=== PATIENT | female | born 1985 | race Two or more races ===

== ENCOUNTER 2022-01-07 20:07 | Emergency (ER) | payer BC ==
[~2022-01-07] VITALS: Ht 152.4 cm; Wt 81.6 kg
[2022-01-07] MEDS ORDERED: EMGALITY P120 MG/1 M (20:20)
[2022-01-07] MEDS ORDERED: PEG3350238 GM (20:21)
[2022-01-07] MEDS ORDERED: ZANAFLEX2 MG (20:21)
[2022-01-07] MEDS ORDERED: CARBIDOPA-LEVO1 EA10 (20:21)
[2022-01-07] MEDS ORDERED: TOPIRAMATE50 MG (20:21)
[2022-01-07] MEDS ORDERED: CYCLOBENZAPRINE10 MG (20:21)
[2022-01-07] MEDS ORDERED: STIMULANT LAXA1 EACH (20:21)
[2022-01-07] MEDS ORDERED: HYDROMORPHONE HC2 MG (20:22)
[2022-01-07] MEDS ORDERED: PROPRANOLOL HCL80 MG (20:22)
[2022-01-07] MEDS ORDERED: GABAPENTIN300 M2 (20:22)
[2022-01-07] MEDS ORDERED: VITAMIN D31250 MCG (20:22)
[2022-01-07] MEDS ORDERED: ANUSOL-HC25 MG (20:22)
[2022-01-07] MEDS ORDERED: AMLODIPINE BESYL5 MG (20:22)
[2022-01-08] MEDS ORDERED: DICY20TA PO (06:05)
[2022-01-08] MEDS ORDERED: DOLOGESIC-DF 51 EACH PO (06:12)
[2022-01-08] MEDS ORDERED: ORASEP SPRAY30 ML MM (06:25)
[2022-01-08] MEDS ORDERED: ZOFRAN8 MG PO (06:26)
== END 2022-01-08 06:31 ==
LOC: ER 20:07
DX: R10.9 Unspecified abdominal pain (principal); N20.0 Calculus of kidney

== ENCOUNTER 2023-04-07 09:05 | Outpatient (CLI) | payer BC ==
[~2023-04-07 09:05] MED LIST: AMLODIPINE BESYL5 MG; ANUSOL-HC25 MG; CARBIDOPA-LEVO1 EA10; CYCLOBENZAPRINE10 MG; DICY20TA PO; DOLOGESIC-DF 51 EACH PO; EMGALITY P120 MG/1 M; GABAPENTIN300 M2; HYDROMORPHONE HC2 MG; ORASEP SPRAY30 ML MM; PEG3350238 GM; PROPRANOLOL HCL80 MG; STIMULANT LAXA1 EACH; TOPIRAMATE50 MG; VITAMIN D31250 MCG; ZANAFLEX2 MG; ZOFRAN8 MG PO
== END 2023-04-07 09:09 | disposition home or self-care (01) ==
LOC: LAB 09:05
DX: E78.49 Other hyperlipidemia (principal); E07.89 Other specified disorders of thyroid; Z12.11 Encounter for screening for malignant neoplasm of colon; N39.0 Urinary tract infection, site not specified; I11.9 Hypertensive heart disease without heart failure; Z11.4 Encounter for screening for human immunodeficiency virus [HIV]; Z11.59 Encounter for screening for other viral diseases; R79.1 Abnormal coagulation profile; Z20.822 Contact with and (suspected) exposure to COVID-19

== ENCOUNTER 2023-04-11 09:33 | Outpatient (CLI) | payer BC | END 2023-04-11 09:34 | disposition home or self-care (01) | LOC: LAB 09:33 | DX: Z20.822 Contact with and (suspected) exposure to COVID-19 (principal) ==